=== PATIENT | male | born 1965 | race Caucasian/White ===

== ENCOUNTER 2022-05-21 16:44 | Emergency (ER) | payer SELFPAY ==
[~2022-05-21] VITALS: Ht 172.7 cm; Wt 149.2 kg
[2022-05-21] MEDS ORDERED: METO50TE2 PO (17:31)
[2022-05-21] MEDS ORDERED: LISI-486 PO (17:31)
--- NOTE | 2022-05-21 18:55 | NUR ---
57/M PRESENTS TO ED WITH C/O HEADACHE AND DIZZINESS TODAY, STATES BP AT HOME WAS 210/100, REPORTS HE TAKES LISINOPRIL 10MG AND METOPROLOL 50MG AND IS COMPLIANT WITH HIS MEDICATIONS. DENIES VISION CHANGES, NUMBNESS OR TINGLING, PATIENT AMBULATORY AND AOX4 UPON ARRIVAL TO ED.
--- NOTE | 2022-05-21 19:14 | NUR ---
Dr. Haines evaluating patient at bedside.
--- NOTE | 2022-05-21 19:17 | NUR ---
Report given to RAEANN Pope for transfer of care.
== END 2022-05-21 20:10 | disposition home or self-care (01) ==
LOC: MED 16:44
DX: I10 Essential (primary) hypertension (principal); Z79.899 Other long term (current) drug therapy
CPT/HCPCS: 93005; 99283